=== PATIENT | female | born 1960 | race Caucasian/White ===

== ENCOUNTER 2018-03-28 21:58 | Emergency (ER) | payer MEDICARE, MEDICAID ==
[~2018-03-28] VITALS: Ht 154.9 cm; Wt 56.7 kg
[2018-03-28 21:59] VITALS: BP 142/77
[2018-03-28 22:43] LABS: BASOPHILS # (AUTO) 0.07 x10^3/uL (0-0.1); BASOPHILS % (AUTO) 1 % (0-1); EOSINOPHILS # (AUTO) 0.29 x10^3/uL (0-0.4); EOSINOPHILS % (AUTO) 4 % (1-7); LYMPHOCYTES % (AUTO) 23 % (22-44); MD NO; MEAN CORPUSCULAR HEMOGLOBIN 29.6 pg (27.0-34.8); MEAN CORPUSCULAR HGB CONC 33.5 g/dL (32.4-35.8); MEAN CORPUSCULAR VOLUME 88.5 fL (80-100); MEAN PLATELET VOLUME 6.9 fL (7.4-10.4); MONOCYTES # (AUTO) 0.48 x10^3/uL (0.2-0.8); MONOCYTES % (AUTO) 6 % (2-9); NEUTROPHILS % (AUTO) 66 % (42-75); PLATELET COUNT 305 x10^3/uL (130-400); RED BLOOD COUNT 4.29 x10^6/uL (3.82-5.3); RED CELL DISTRIBUTION WIDTH 13.4 % (9.6-15.2)
[2018-03-28] MEDS ORDERED: CLINDAMYCIN 300 MG CAPSULE ONE (22:49)
[2018-03-28 22:53] LABS: ALANINE AMINOTRANSFERASE 32 U/L (12-78); ALBUMIN 3.5 g/dL (3.4-5.0); ANION GAP 9 mmol/L (5-15); CALCIUM 8.8 mg/dL (8.5-10.1); CHLORIDE 108 mmol/L (98-107)
[2018-03-28 22:55] LABS: ALKALINE PHOSPHATASE 102 U/L (45-117); BILIRUBIN,TOTAL 0.2 mg/dL (0.2-1.0); TOTAL PROTEIN 7.3 g/dL (6.4-8.2)
[2018-03-28] MEDS ORDERED: PLEASE ENTER ALLERGIES MC SCH (23:00)
[2018-03-28] MEDS ORDERED: CLINDAMYCIN 300 MG CAPSULE PO ONE (23:00)
== END 2018-03-28 23:07 | disposition home or self-care (01) ==
LOC: ED 23:03
DX: S80.862A Insect bite (nonvenomous), left lower leg, initial encounter (principal); L03.90 Cellulitis, unspecified; I10 Essential (primary) hypertension; E11.9 Type 2 diabetes mellitus without complications; Z79.4 Long term (current) use of insulin; F17.210 Nicotine dependence, cigarettes, uncomplicated; W57.XXXA Bitten or stung by nonvenomous insect and other nonvenomous arthropods, initial encounter; Y93.89 Activity, other specified; Y99.8 Other external cause status; Y92.89 Other specified places as the place of occurrence of the external cause
CPT/HCPCS: 36415; 80053; 85025; 99285

== ENCOUNTER 2018-10-08 19:20 | Inpatient (IN) | payer MEDICARE, MEDICAID ==
[~2018-10-08] VITALS: Ht 154.9 cm; Wt 51.9 kg
[2018-10-08 19:44] LABS: BASOPHILS # (AUTO) 0.02 x10^3/uL (0-0.1); BASOPHILS % (AUTO) 0 % (0-1); EOSINOPHILS # (AUTO) 0.26 x10^3/uL (0-0.4); EOSINOPHILS % (AUTO) 2 % (1-7); LYMPHOCYTES # (AUTO) 2.08 x10^3/uL (1-3.4); LYMPHOCYTES % (AUTO) 18 % (22-44); MD NO; MEAN CORPUSCULAR HEMOGLOBIN 29.1 pg (27.0-34.8); MEAN CORPUSCULAR VOLUME 88.2 fL (80-100); MEAN PLATELET VOLUME 7.5 fL (7.4-10.4); MONOCYTES # (AUTO) 0.57 x10^3/uL (0.2-0.8); MONOCYTES % (AUTO) 5 % (2-9); NEUTROPHILS # (AUTO) 8.48 x10^3/uL (1.8-6.8); NEUTROPHILS % (AUTO) 74 % (42-75); PLATELET COUNT 549 x10^3/uL (130-400); RED BLOOD COUNT 5.05 x10^6/uL (3.82-5.3); RED CELL DISTRIBUTION WIDTH 13.1 % (9.6-15.2)
--- NOTE | 2018-10-08 19:46 | NUR ---
PT ARRIVES TO ED WITH SOME GI DISTRESS AFTER EATING SOME QUESTIONABLE FOOD. PT DENIES FOOD BEING PAST DATE. SHE REPORTS WAS A FROZEN MEAL. PT DOES REPORT THAT HER SYMPTOMS ARE GETTING BETTER BUT SHE IS ALSO CONCERNED BECUAS SHE NOW HAS A RASH ON HER HIPS. PT IS NAUSEAS BUT HAS NOT HAD A EPISODE OF EMESIS. PT CONNECTED TO MONITORS AND CALL LIGHT IN REACH. AWAITING FURTHER ORDERS.
--- NOTE | 2018-10-08 19:48 | NUR ---
FLORY TERAN TO BEDSIDE.
[2018-10-08 19:54] LABS: ALBUMIN 3.6 g/dL (3.4-5.0); ANION GAP 10 mmol/L (5-15); CALCIUM 8.9 mg/dL (8.5-10.1); CHLORIDE 94 mmol/L (98-107)
[2018-10-08 19:59] LABS: ALANINE AMINOTRANSFERASE 15 U/L (12-78); ALKALINE PHOSPHATASE 137 U/L (45-117); BILIRUBIN,TOTAL 0.5 mg/dL (0.2-1.0); CREATININE 2.22 mg/dL (0.55-1.02); TOTAL PROTEIN 8.5 g/dL (6.4-8.2); TROPONIN I < 0.015 ng/mL (0.000-0.045)
--- NOTE | 2018-10-08 20:23 | NUR ---
PT LABS BACK, PT SHOWING ELEVATED KIDNEY FUNCTION TEST. PT TO BE ADMITTED AT THIS TIME.
[2018-10-08] MEDS ORDERED: ONDANSETRON ODT 4 MG PO ONE (20:30)
[2018-10-08] MEDS ORDERED: SODIUM CHLORIDE 0.9% 1,000ML IV ONE (20:30)
--- NOTE | 2018-10-08 21:10 | NUR ---
REPORT FROM GERMAINE SALTER. PT SITTING UP IN BEDSIDE CHAIR. NAD NOTED. PT REQUESTING TO REMAIN OFF MONITORING AT THIS TIME. NAD NOTED. PT UPDATED TO POC (ADMIT/AWAITING BED ASSIGNMENT) AND DEMONSTRATES UNDERSTANDING.
--- NOTE | 2018-10-08 21:50 | NUR ---
REPORT CALLED TO GERMAINE NUÑEZ. [facility].
[2018-10-08 22:44] VITALS: BP 105/62
[2018-10-09] MEDS ORDERED: POLYETHYLENE GLYCOL 17 GM PACKET PO PRN
[2018-10-09] MEDS ORDERED: ONDANSETRON 2MG/ML, 2ML IVPush PRN
[2018-10-09] MEDS ORDERED: BISACODYL 10 MG SUPP PR PRN
[2018-10-09] MEDS ORDERED: PROMETHAZINE 25 MG/ML, 1ML IM PRN
[2018-10-09] MEDS ORDERED: ONDANSETRON ODT 4 MG PO PRN
[2018-10-09] MEDS ORDERED: DOCUSATE 100 MG CAPSULE PO PRN
[2018-10-09] MEDS ORDERED: NICOTINE 7 MG/24 HR PATCH.TD24 TD SCH
[2018-10-09] MEDS ORDERED: ACETAMINOPHEN 325 MG TABLET PO PRN
[2018-10-09] MEDS: SODIUM CHLORIDE 0.9% 1,000 ML IV SCH ×2 (01:00→09:01)
[2018-10-09 02:17] VITALS: BP 96/54
[2018-10-09 05:29] LABS: ANION GAP 7 mmol/L (5-15); CALCIUM 8.1 mg/dL (8.5-10.1); CHLORIDE 106 mmol/L (98-107)
[2018-10-09 05:32] LABS: ALANINE AMINOTRANSFERASE 12 U/L (12-78); ALKALINE PHOSPHATASE 119 U/L (45-117); BILIRUBIN,TOTAL 0.3 mg/dL (0.2-1.0); CHOL/HDL RATIO 3.9; CHOLESTEROL, TOTAL 157 mg/dL (140-239); CREATININE 1.26 mg/dL (0.55-1.02); HDL CHOL % 25 % (28-40); HDL CHOLESTEROL (DIRECT) 40 mg/dL (40-60); LDL CHOLESTEROL,CALCULATED 87 mg/dL (54-169); LDL/HDL RATIO 2.2 (0.5-3.0); TOTAL PROTEIN 6.9 g/dL (6.4-8.2); TRIGLYCERIDES 152 mg/dL (50-200); VLDL CHOLESTEROL 30 mg/dL (0-25)
[2018-10-09 06:13] LABS: FREE T4 (FREE THYROXINE) 1.06 ng/dL (0.76-1.46); THYROID STIMULATING HORMONE 4.33 mIU/L (0.358-3.740)
[2018-10-09] MEDS ORDERED: DEXTROSE 4 GM TAB.CHEW PO PRN (06:30)
[2018-10-09] MEDS ORDERED: DEXTROSE 50%, 50ML SYRINGE IVPush PRN (06:30)
[2018-10-09] MEDS ORDERED: GLUCAGON 1 MG IM PRN (06:30)
[2018-10-09 06:45] LABS: HEMOGLOBIN A1C 10.8 % (4.2-6.3)
[2018-10-09] MEDS: INSULIN LISPRO 100 UNITS/ML, PEN SQ-INSULIN SCH ×2 (06:52→12:18)
[2018-10-09 07:14] LABS: BASOPHILS # (AUTO) 0.03 x10^3/uL (0-0.1); BASOPHILS % (AUTO) 0 % (0-1); EOSINOPHILS # (AUTO) 0.26 x10^3/uL (0-0.4); EOSINOPHILS % (AUTO) 4 % (1-7); LYMPHOCYTES # (AUTO) 1.86 x10^3/uL (1-3.4); LYMPHOCYTES % (AUTO) 25 % (22-44); MEAN CORPUSCULAR HEMOGLOBIN 29.6 pg (27.0-34.8); MEAN CORPUSCULAR HGB CONC 33.7 g/dL (32.4-35.8); MEAN CORPUSCULAR VOLUME 87.7 fL (80-100); MEAN PLATELET VOLUME 7.5 fL (7.4-10.4); MONOCYTES # (AUTO) 0.61 x10^3/uL (0.2-0.8); MONOCYTES % (AUTO) 8 % (2-9); NEUTROPHILS # (AUTO) 4.71 x10^3/uL (1.8-6.8); NEUTROPHILS % (AUTO) 63 % (42-75); PLATELET COUNT 345 x10^3/uL (130-400); RED BLOOD COUNT 4.47 x10^6/uL (3.82-5.3); RED CELL DISTRIBUTION WIDTH 13.3 % (9.6-15.2)
[2018-10-09 07:16] LABS: MD NO
[2018-10-09 07:57] VITALS: BP 95/58
[2018-10-09] MEDS ORDERED: SODIUM CHLORIDE FLUSH 10ML SYR IVF SCH (09:00)
[2018-10-09] MEDS: HEPARIN 5,000 UNITS/ML, 1ML SQ SCH ×2 (09:01)
[2018-10-09 10:24] LABS: MICROSCOPIC AUTO
[2018-10-09 10:30] LABS: CULTURE INDICATED? YES
[2018-10-09 14:28] VITALS: BP 104/70
[2018-10-09] MEDS ORDERED: INSULIN GLARGINE 100 UNITS/ML, PEN SQ-INSULIN ONE (16:00)
[2018-10-09] MEDS ORDERED: ATORVASTATIN 20 MG TABLET PO SCH (21:00)
== END 2018-10-09 16:08 | disposition left against medical advice (07) | DRG 683 ==
LOC: ED 20:47 → EDIP 20:55 → 4NOR 22:24
PROVIDERS: ADMIT Internal Medicine; ATTEND Internal Medicine
DX: N17.0 Acute kidney failure with tubular necrosis (principal); N39.0 Urinary tract infection, site not specified; E87.1 Hypo-osmolality and hyponatremia; E86.0 Dehydration; I95.9 Hypotension, unspecified; E11.65 Type 2 diabetes mellitus with hyperglycemia; E03.9 Hypothyroidism, unspecified; E78.5 Hyperlipidemia, unspecified; I11.9 Hypertensive heart disease without heart failure; F17.210 Nicotine dependence, cigarettes, uncomplicated; R29.6 Repeated falls; R63.0 Anorexia; Z68.21 Body mass index [BMI] 21.0-21.9, adult; Z90.49 Acquired absence of other specified parts of digestive tract; Z98.51 Tubal ligation status
CPT/HCPCS: 36415; 71045; 80053; 80061; 81001; 82962; 83036; 83735; 84439; 84443; 84484; 85025; 87077; 87086; 87186; 93005; 99285; G0378; J1644; J1815; J7030